=== PATIENT | male | born 1990 | race African-American/Black ===

== ENCOUNTER 2020-02-03 13:11 | Emergency (ER) | payer OTHER ==
[~2020-02-03] VITALS: Ht 170.2 cm; Wt 82.6 kg
[~2020-02-03 13:11] MED LIST: NOHOMEMEDICATIONS; OSELB75 PO; PRILOSEC 20 MG20 MG PO
[2020-02-03] MEDS ORDERED: IBUPROFEN 800800 M1 PO (16:30)
[2020-02-03 16:50] VITALS: BP 110/79
== END 2020-02-03 16:40 | disposition home or self-care (01) ==
LOC: M.ERS 13:11
DX: S63.264A Dislocation of metacarpophalangeal joint of right ring finger, initial encounter (principal); S63.266A Dislocation of metacarpophalangeal joint of right little finger, initial encounter; W22.8XXA Striking against or struck by other objects, initial encounter; Y93.89 Activity, other specified; Y92.89 Other specified places as the place of occurrence of the external cause; Y99.8 Other external cause status